=== PATIENT | female | born 1975 | race Two or more races ===

== ENCOUNTER 2019-08-22 09:06 | Emergency (ER) | payer OTHER ==
[~2019-08-22] VITALS: Ht 160 cm; Wt 80.3 kg
[2019-08-22 09:09] VITALS: BP 147/69
== END 2019-08-22 10:26 | disposition left against medical advice (07) ==
LOC: ER 09:06 → EDBD 09:06 → ER 10:26
DX: M54.2 Cervicalgia (principal); Z53.21 Procedure and treatment not carried out due to patient leaving prior to being seen by health care provider
CPT/HCPCS: 71101; 72040